=== PATIENT | female | born 1945 | race Caucasian/White ===

== ENCOUNTER → 2016-05-31 | Outpatient (CLI) | payer MEDICARE, MEDICAID ==
[2015-07-20 15:07] VITALS: BP 120/59
[~2016-05-31] MED LIST: AMAN100T PO; ASPI-482 PO; BACL10TA PO; CHOL10003 PO; DOCU-27 PO; ERGO500012 PO; ESTR1TAB5 PO; GADOBUTROL 7.5 MMOL/7.5 ML VIAL IV ONE; HYDR-2762 PO; HYDR-963 PO; HYDR12.53 PO; MECL25TA3 PO; NAPR550T3 PO; OXYB5TAB7 PO
--- NOTE | 2016-05-31 12:50 | KCIC ---
PROCEDURE Lumbar spine MRI with and without contrast. HISTORY Radiculopathy. TECHNIQUE Multiplanar and multi sequence magnetic resonance imaging of the lumbar spine was performed prior to and following the administration of 5 cc Gadavist intravenous contrast. COMPARISON Correlation is made with a report from a prior MRI dated 02/22/2015. The images corresponding with this report are not available for direct comparison at the time of dictation. FINDINGS There is lumbar levoscoliosis centered at L4. There is grade 1 anterolisthesis of L4 on L5, measuring 5 mm. There is grade 1 anterolisthesis of L5 on S1, measuring 3 mm. There is grade 1 anterolisthesis of L2 on L3 and L3 on L4, measuring approximately 1 mm. There is advanced degenerative endplate remodeling with disc space narrowing along the left aspect of L2-L3 and right aspect of L4-L5. This corresponds with levels of maximum scoliotic concavity. There is disc space narrowing and disc desiccation at these levels, as well as L3-L4. The conus terminates at L1. There is no suspicious osseous lesion. There is edema within the right posterior spinal muscles from L3 to the sacral levels, likely due to denervation edema with superimposed fatty atrophy. There is enhancing granulation tissue the laminectomy decompression spaces at L3-L4 and L4-L5 as well as the right lateral recess and along the right posterior lateral disc margin at L4-L5, the latter of which may be due to prior microdiscectomy surgery. At L1-L2, there is no stenosis. At L2-L3, there is a left paracentral to lateral disc protrusion with slight superior posterior central extrusion superimposed on a disc bulge and left lateral predominant endplate osteophytosis. There is mild left facet arthropathy. There is hypertrophy of the ligamentum flavum. There is moderate to severe left foraminal stenosis. There is mild central canal stenosis. At L3-L4, there is a broad-based posterior protrusion with slight superior extrusion superimposed on a diffuse disc bulge and endplate osteophytosis. There is mild left facet arthropathy. There are right juan laminectomy changes. There is mild bilateral foraminal stenosis. At L4-L5, there is a right paracentral to lateral disc protrusion with slight superior extrusion superimposed on a diffuse disc bulge and right lateral predominant endplate osteophytosis. There is mild bilateral facet arthropathy. There are right juan laminectomy changes. There is severe right foraminal stenosis with effacement of the exiting right L4 nerve root. At L5-S1, there is moderate right and mild left facet arthropathy. There is no stenosis. IMPRESSION 1. Multilevel degenerative change within the lumbar spine, described in detail above. This results in moderate to severe left foraminal and mild central canal stenosis at L2-L3, mild bilateral foraminal stenosis at L3-L4, in severe right foraminal stenosis at L4-L5. 2. Right juan laminotomy changes at L3-L4 and L4-L5. There is enhancing granulation tissue within the laminectomy decompression spaces as well as the right lateral recess and along the right posterior lateral disc margin at L4-L5, possibly due to prior microdiscectomy at this level. 3. Grade 1 anterolisthesis of L4 on L5, and to a lesser extent, L2 on L3, L3 on L4 and L5 on S1. There may be a superimposed right pars defect at L4-L5. 4. Edema within the right posterior spinal musculature extending from L3 to the sacral levels, likely due to denervation and superimposed fatty infiltration. 5. Scoliosis. Electronically signed by: Jolene Martinez (May 31, 2016 12:49:42)
--- NOTE | 2016-05-31 12:52 | KCIC ---
PROCEDURE Right hip, two views. HISTORY Pain. FINDINGS Frontal and frog-leg views of the right hip were obtained. There is no fracture, dislocation or subluxation. There is minimal osteoarthritis. IMPRESSION No acute osseous finding. Minimal osteoarthritis of the right hip. Electronically signed by: Jolene Martienz (May 31, 2016 12:50:33)
== END | disposition home or self-care (01) ==
LOC: KCIC MRI 10:45
PROVIDERS: ATTEND Neurological Surgery
DX: M54.16 Radiculopathy, lumbar region (principal); M25.551 Pain in right hip
CPT/HCPCS: 72158; 73502

== ENCOUNTER → 2016-06-07 | Outpatient (CLI) | payer MEDICARE, MEDICAID ==
[2015-07-20 15:07] VITALS: BP 120/59
[~2016-06-07] MED LIST changes: -GADOBUTROL 7.5 MMOL/7.5 ML VIAL IV ONE
--- NOTE | 2016-06-07 13:39 | RAD ---
Lateral lumbar spine, 3 views, 06/07/2016: History: Spondylolisthesis Lateral views of the lumbar spine were obtained standing with flexion and extension, and in the supine neutral position. There is moderate disc space narrowing at L2-3 and L4-5 with moderate endplate sclerosis and marginal spurring. A lesser degree of degenerative changes are present at the other disc levels. There are mild degenerative changes involving the facet joints at multiple levels. There is minimal associated anterolisthesis at L3-4 and L4-5. This does not appear to change significantly with flexion and extension. Extensive aortoiliac calcific plaquing is evident. IMPRESSION: 1. Moderate multilevel degenerative change. 2. Mild spondylolisthesis at L3-4 and L4-5
== END | disposition home or self-care (01) ==
LOC: RAD 12:42
PROVIDERS: ATTEND Neurological Surgery
DX: M43.16 Spondylolisthesis, lumbar region (principal); M47.896 Other spondylosis, lumbar region; I70.8 Atherosclerosis of other arteries
CPT/HCPCS: 72100

== ENCOUNTER → 2016-07-12 | Outpatient (CLI) | payer MEDICARE, MEDICAID ==
[2015-07-20 15:07] VITALS: BP 120/59
[~2016-07-12] MED LIST changes: +IOHEXOL 180 MG/ML 10 ML VIAL. ONE; +methylPREDNISolone ACETATE 40 MG/ML VIAL. ONE; +methylPREDNISolone ACETATE 80 MG/ML VIAL. ONE
--- NOTE | 2016-07-13 16:59 | PAIN ---
DATE OF SERVICE: 07/12/2016 CHIEF COMPLAINT: Low back and right lower extremity pain. HISTORY OF PRESENT ILLNESS: This is a 71-year-old female who presents with history of pain in the low back and right lower extremity since about March of this year for several months, has been increasing in pain. The patient reports she had surgery about a year ago with a lumbar laminectomy and fusion and it never got better after the surgery. The patient reports still significant pain across the low back into the right leg, mostly in the posterior gluteus, posterolateral thigh, anterior thigh, medial thigh, lower leg and the anterior aspect and medial aspect of the lower leg as well, all on the right side. The patient reports numbness and tingling. It is a constant shooting pain. The patient reports it is worse with standing and walking, change in positions, awakens her from sleep at least 2-3 times a night, did not affect her bowel or bladder control, but does affect her ability to walk. She does not usually use an assistive device to walk, but does hold on to items and hand rails when she can. The patient reports she has had physical therapy in the past, has done some exercises which she continues to do currently. No formal physical therapy recently. Most of it was before her surgery in 2015. The patient did have a new flexion/extension films showing no significant motion. An MRI scan of the lumbar spine, which shows previous surgery of right hemilaminotomy changes to L3-4 and L4-5, enhancing granulation tissue with no laminectomy decompression spaces as well as granulation tissue and right lateral recess decompression and posterolateral disk margin at L4-5 with moderate to severe left foraminal and mild central canal stenosis at L2-3, mild bilateral foraminal stenosis at L3-4, severe right foraminal stenosis at L4-5. The patient rates her disability as 10, 10 being the worse with home responsibilities, recreation, occupation; 7 with social activity and life support activities. 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 CURRENT MEDICATIONS: Include hydrocodone, daily baby aspirin, vitamin D, oxybutynin, Premarin, hydrochlorothiazide, baclofen, amantadine and naproxen. ALLERGIES: The patient has no known drug allergies. SOCIAL HISTORY: The patient smokes about 1 pack a day or less, does not drink alcohol. She is single, lives on her own locally and is retired. REVIEW OF SYSTEMS: The patient's review of systems is positive for mentioned history of present illness. All systems reviewed and otherwise negative. It is complete, full and well documented on patient's chart. PHYSICAL EXAMINATION: VITAL SIGNS: The patient's blood pressure is 140/78, pulse 99, respirations 16, temperature 97.4 degrees Fahrenheit, height is 5 feet 4 inches, weight 122 pounds, the patient is awake, alert, oriented and appropriate. Very pleasant demeanor. HEENT: The patient's head is normocephalic, atraumatic. Extraocular movement intact and symmetrical. Oral cavity, mucous membranes moist and pink, dentition is intact. NECK: ____ supple without palpable lymphadenopathy. No swallow reflexes, symmetrical. CHEST: Normal on inspection. LUNGS: Breath sounds are clear to auscultation bilaterally. CARDIOVASCULAR: S1, S2 clear. No murmurs ausculated. ABDOMEN: Soft, nontender, nondistended. No palpable organomegaly. No rebound or guarding demonstrated. BACK: Shows spine grossly in the midline. Normal appearing thoracic kyphosis and mild flattening of lumbar lordotic curvature. Lumbar paraspinous muscle shows symmetry with inspection, shows no atrophy or hypertrophy, symmetrical. With palpation shows some moderate tenderness in the middle and lower distribution, very firm, but normal muscle girth and symmetrical without evidence of atrophy or hypertrophy and without radiation of pain with palpation. No tenderness over the spinous processes. No tenderness over the sacroiliac region. The patient does show some limit in rotation of motion, but not secondary to pain, just limited rotation especially with extension and forward flexion. Right and left lateral rotation about 10 degrees right and left without difficulty and no pain reported in any rotation of motion of lumbar spine. EXTREMITIES: Lower extremities show deep tendon reflexes at 1+ in the patellar, and Achilles tendons are equal. Motor exam is strong with 5/5 dorsiflexion, extension, quadriceps and hamstring flexion and equal. Peripheral pulses are 1+, posterior tibial and dorsalis pedis pulses. No peripheral edema is noted. No clubbing. No cyanosis. Lower extremities are warm and dry with color and appearance. Straight leg raise noted to be positive on the right, about 30 degrees which is decreased with knee flexion. Left side is negative. ____ negative for reproduction of pain in the low back or hip as well. The patient is able to stand, stand on her toes without difficulty, loss of balance, walks with normal appearing gait, do not appear to favor the right or left lower extremities, not using any assistive device to ambulate. IMPRESSION: 1. This is a 71-year-old female with several-month history of increasing pain, status post lumbar decompressive laminectomy and fusion 1 year ago with persistent radicular pain in the low back and right lower extremity. 2. MRI scan of the lumbar spine as noted. 3. Cigarette smoking. 4. Arthritis. PLAN: Options were discussed the patient including surgery, medical management, physical therapy, intervention technique. She would like to proceed with interventional technique. We discussed a caudal approach epidural steroid injection. ____ described the procedure. Risks were then discussed including but not limited to bleeding, infection, possibility of ____ hematoma, subsequent neurological compromise, dural puncture headaches, spinal cord and nerve damage, side effects of steroid medication and poor results regarding pain control. The patient understands and wishes to proceed. The patient will return to clinic in approximately 2 weeks for followup with ____ activity level and side effects to be aware. DIAGNOSES: Lumbar radiculopathy, post-lumbar laminectomy syndrome and lumbar spinal stenosis. PROCEDURE: Caudal approach epidural steroid injection using C-arm fluoroscopic guidance. Under sterile prep and drape using local anesthetic, medication injected with 120 mg Depo-Medrol plus 10 mL preservative free normal saline and 2 mL Isovue for contrast. CONDITION AT DISCHARGE: Stable. The patient tolerated procedure well, had no complications. EDGARDO WEINER MD DR: SADIE/dominick JOB#: [id number] / [id number]
== END | disposition home or self-care (01) ==
LOC: PNCL 10:29
PROVIDERS: ATTEND Anesthesiology
DX: M48.06 Spinal stenosis, lumbar region (principal); M96.1 Postlaminectomy syndrome, not elsewhere classified; M54.16 Radiculopathy, lumbar region; M19.90 Unspecified osteoarthritis, unspecified site; F17.210 Nicotine dependence, cigarettes, uncomplicated; Z90.710 Acquired absence of both cervix and uterus; Z90.49 Acquired absence of other specified parts of digestive tract; Z72.0 Tobacco use
CPT/HCPCS: 62323; J1030; J1040

== ENCOUNTER → 2016-07-26 | Outpatient (CLI) | payer MEDICARE, MEDICAID ==
[2015-07-20 15:07] VITALS: BP 120/59
--- NOTE | 2016-07-26 13:20 | PAIN ---
DATE OF SERVICE: 07/26/2016 PROGRESS NOTE FOR PAIN CLINIC DIAGNOSES: Lumbar radiculopathy with post-lumbar laminectomy syndrome and lumbar spinal stenosis. HISTORY OF PRESENT ILLNESS: The patient is a 71-year-old female, who returns for followup status post caudal approach epidural steroid injection x 1. The patient reports 50% improvement overall in her low back and right leg pain. The patient reports still there is anywhere from 6 to 7 on a scale of 10, but much better than ____ she has been sleeping about 3-4 hours at night, but has been waking her. She has to reposition with that, otherwise increasing activity with fairly good with ease and comfort, still some tingling and numbness in the right leg, posterior lateral thigh, posterior gluteus and anterior thigh, aching, shooting and tingling description, the patient reports no new motor or sensory deficits, no new bowel or bladder incontinence or other complaints. PHYSICAL EXAMINATION: VITAL SIGNS: Today, the patient's blood pressure is 136/72, pulse 81, respirations 18, temperature 98.0 degrees Fahrenheit, weight is 121 pounds. GENERAL: The patient is awake, alert, oriented, appropriate, very pleasant demeanor. HEENT: Head shows normocephalic, atraumatic. Extraocular movements are intact, symmetrical. Oral cavity: Mucous membranes moist and pink. Dentition is intact. NECK: Shows anterior throat supple without palpable lymphadenopathy noted. Swallow reflex is symmetrical. CHEST: Shows normal on inspection. Breath sounds clear to auscultation bilaterally. HEART: Shows S1 and S2 clear. No murmurs auscultated. ABDOMEN: Soft, nontender, nondistended. No palpable organomegaly. No rebound or guarding demonstrated. BACK: Shows spine grossly midline. Some minor flattening of lumbar lordotic curvature. Well-healed surgical scarring is noted in the lumbar distribution of the lumbar paraspinous muscles, appears symmetrical. Palpation shows some [id number] tenderness with palpation only in the lower lumbar distribution of paraspinous muscle, but only diffusely without radiation. No tenderness over the sacrum or sacroiliac regions. EXTREMITIES: Lower extremities show deep tendon reflexes at 1+ in the patellar and tendo calcaneus tendons. Motor exam is strong with 5/5 dorsiflexion, extension and equal bilaterally. Options were discussed with the patient and the patient's old chart was reviewed as her current medication regimen updated. Current review of systems updated today as well. We will proceed with the second caudal approach epidural steroid injection today with fluoroscopic guidance. Risks were again discussed including, but not limited to bleeding, infection, possibility of epidural hematoma, subsequent neurologic compromise, dural puncture, headaches, spinal cord and/or nerve damage, side effects of steroid medication and poor results regarding pain control. The patient understands and wishes to proceed. The patient will return to clinic in approximately 2 weeks for followup, was counseled on return appointment, activity level and side effects to be aware of. DIAGNOSES: Lumbar radiculopathy with post-lumbar laminectomy syndrome and lumbar spinal stenosis. PROCEDURE: Caudal approach epidural steroid injection using C-arm fluoroscopic guidance under sterile prep and drape using local anesthetic. MEDICATION INJECTED: Depo-Medrol 120 mg plus 10 mL of preservative-free normal saline and 2 mL of Isovue for contrast. CONDITION AT DISCHARGE: Stable. The patient tolerated procedure well, had no complications. EDGARDO WEINER MD DR: SADIE/dominick JOB#: [id number] / [id number]
== END | disposition home or self-care (01) ==
LOC: PNCL 10:30
PROVIDERS: ATTEND Anesthesiology
DX: M48.06 Spinal stenosis, lumbar region (principal); M54.16 Radiculopathy, lumbar region; M96.1 Postlaminectomy syndrome, not elsewhere classified; F32.9 Major depressive disorder, single episode, unspecified; Z72.0 Tobacco use; Z90.49 Acquired absence of other specified parts of digestive tract; Z90.710 Acquired absence of both cervix and uterus; Z87.39 Personal history of other diseases of the musculoskeletal system and connective tissue
CPT/HCPCS: 62323; J1030; J1040

== ENCOUNTER → 2018-12-24 | Outpatient (CLI) | payer MEDICARE, MEDICAID ==
[2015-07-20 15:07] VITALS: BP 120/59
[~2018-12-24] MED LIST changes: +DOCU-109 PO; -DOCU-27 PO; -ERGO500012 PO; +ERGO500027 PO; -HYDR-2762 PO; +HYDR-2765 PO; +HYDR-3135 PO; -HYDR-963 PO; -HYDR12.53 PO; +HYDR12.575 PO; -IOHEXOL 180 MG/ML 10 ML VIAL. ONE; +NAPR-677 PO; -NAPR550T3 PO; +OXYB5TAB10 PO; -OXYB5TAB7 PO; -methylPREDNISolone ACETATE 40 MG/ML VIAL. ONE; -methylPREDNISolone ACETATE 80 MG/ML VIAL. ONE
--- NOTE | 2018-12-24 10:39 | KCIC ---
Bilateral digital screening mammograms: Reason for examination: Routine screening. New baseline. Interpretation was made with the benefit of CAD. The skin and nipples show no abnormalities. No abnormal axillary lymph nodes are seen. The breast parenchyma is extremely dense. (Breast density: Category D) There are no dominant masses, suspicious calcifications or architectural distortion. Scattered benign calcifications are present. Impression: No evidence of malignancy. Recommend routine screening. Your patient's mammogram demonstrates that she has dense breast tissue (breast density category C or D), which could hide abnormalities, and if she has other risk factors for breast cancer that have been identified, she might benefit from supplemental screening tests that may be suggested by you as her ordering physician. Dense breast tissue, in and of itself, is a relatively common condition. Therefore, this information is not provided to cause undue concern, but rather to raise your awareness and to promote discussion with your patient regarding the presence of other risk factors, in addition to dense breast tissue. Your patient's mammography results will be sent to her. BI-RADS Category 2: Benign. "Our facility is accredited by the [employer] Mammography Program." This patient's information has been entered into a reminder system for the patient to be notified with the results of her examination and a target date for the next mammogram. Electronically signed by: Demetra Weller MD (12/24/2018 10:36 AM) [id number]
--- NOTE | 2018-12-24 13:10 | KCIC ---
EXAM: Dual energy x-ray absorptiometry (DEXA). HISTORY: Postmenopausal female presents for osteoporosis screening. COMPARISON: None. TECHNIQUE: Dual energy x-ray absorptiometry of the lumbar spine and left hip was performed. Calculation of bone mineral density based on standard deviations above or below the expected young adult normal value (T-score) was completed. FINDINGS: The average bone mineral density in the 1st through 4th lumbar vertebrae is 1.467 g/cmxcm, corresponding with a T-score of 3.8. The average total bone mineral density in the left hip is 1.052 g/cmxcm, corresponding with a T-score of 0.9. IMPRESSION: Normal bone mineral density. Note: Definitions established by the World Health Organization: 1. Normal: T-score is -1.0 or above. 2. Osteopenia: T-score is between -1.0 and -2.5 . 3. Osteoporosis: T-score is -2.5 or below. Electronically signed by: Jolene Martinez MD (12/24/2018 1:07 PM) [place] [id number]
== END ==
LOC: KCIC DEXA 08:44
PROVIDERS: ATTEND Family Medicine
DX: N64.89 Other specified disorders of breast (principal); M81.0 Age-related osteoporosis without current pathological fracture; Z12.31 Encounter for screening mammogram for malignant neoplasm of breast; Z13.820 Encounter for screening for osteoporosis
CPT/HCPCS: 77067; 77080

== ENCOUNTER → 2019-12-16 | Outpatient (CLI) | payer MEDICARE, MEDICAID ==
[2015-07-20 15:07] VITALS: BP 120/59
[~2019-12-16] MED LIST changes: +MECL-75 PO; -MECL25TA3 PO
--- NOTE | 2019-12-16 14:39 | KCIC ---
ANKLE RIGHT 3V, FOOT RIGHT 3V 12/16/2019 12:00 AM INDICATION: Right ankle and foot pain COMPARISON: None available. TECHNIQUE: 3 views of the right ankle and 3 views the right foot are provided. FINDINGS/ IMPRESSION: 1. There is soft tissue swelling about the ankle, involving the lateral aspect. Tibial plafond and talar dome are intact. Ankle mortise is congruent. 2. There is cortical irregularity involving the anterior calcaneus. There is a lateral ossific fragment measuring 1.1 cm with donor site possibly from the calcaneus or base of the cuboid. Further evaluation with cross-sectional imaging can be of benefit. Electronically signed by: Lou Jackson MD (12/16/2019 2:36 PM) [id number]
== END | disposition home or self-care (01) ==
LOC: KCIC 13:50
PROVIDERS: ATTEND Family Medicine
DX: M25.471 Effusion, right ankle (principal); M77.31 Calcaneal spur, right foot
CPT/HCPCS: 73610; 73630

== ENCOUNTER → 2020-11-11 | Outpatient (CLI) | payer MEDICARE, MEDICAID ==
[2015-07-20 15:07] VITALS: BP 120/59
--- NOTE | 2020-11-11 13:02 | RAD ---
INDICATION: Reason: B/L LOWER EXTREMITY EDEMA / Spl. Instructions: / History: COMPARISON: None. TECHNIQUE: Grayscale, color and doppler ultrasound images were obtained of the bilateral lower extrem ity venous vasculature. RIGHT: No thrombus identified in the common femoral vein, femoral vein, popliteal vein or visualized calf ve ins. LEFT: No thrombus identified in the common femoral vein, femoral vein, popliteal vein or visualized calf ve ins. IMPRESSION: * No thrombus identified in deep venous system of bilateral lower extremities. Electronically signed by: Daniel Nunez MD (11/11/2020 1:00 PM) [id number]
--- NOTE | 2020-11-11 16:02 | RAD ---
MR#: [id number] Date of Study: 11/11/2020 Ordering Physician: REMIGIO HAQ, Referring Physician: REMIGIO HAQ, Tech: Bridger Pool MBA, RDMS, RVT, RDCS, RTR APPROVED REPORT Patient Location: OUT-PATIENT Indications Claudication:Bilaterally VELOCITY AND DOPPLER WAVEFORM ANALYSIS RIGHT cm/secWaveformSeverity LEFT cm/secWaveform Severity dCFA 268.0MonophasicdCFA 117.0Monophasic Prof Fem Art. 189.0MonophasicProf Fem Art. 69.0Biphasic Fem Art Prox. 264.0MonophasicFem Art Prox. 119.0Monophasic Fem Art Mid. 178.0MonophasicFem Art Mid. 444.0Monophasic Fem Art Dist. 280.0MonophasicFem Art Dist. 201.0Monophasic Pop Art(Fossa) 135.0MonophasicPop Art(AK) 175.0Monophasic ANTIQUE JEWELRY REPAIRER Prox. 93.0MonophasicPTA Prox. 77.0Monophasic ANTIQUE JEWELRY REPAIRER Dist. 61.0MonophasicPTA Dist. 64.0Monophasic Per Art Mid. 55.0MonophasicPer Art Mid. 68.0Monophasic KIM Prox. 133.0MonophasicATA Prox. 66.0Monophasic DPA 83MonophasicDPA 95Monophasic Findings Grayscale images the bilateral lower extremity arterial vessels demonstrates moderate diffuse atheros clerotic plaque. On the right side there is likely a moderate 50% stenosis involving the distal common femoral artery. There is likely moderate diffuse 50% stenosis involving the SFA. There is three-vessel runoff belo w the knee again with likely moderate diffuse disease. Waveforms are mostly monophasic throughout th e lower extremity arterial course consistent with adventitial calcification. On the left side there is a likely greater than 75% stenosis involving the mid SFA. Below the knee t here is three-vessel runoff with mostly monophasic waveforms. Critical Notification Critical Value: No <Conclusion> 1. Moderate diffuse disease on the right side of approximately 50% 2. Probable greater than 75% stenosis involving the left mid SFA. Signed by : Jeremy Velez, Electronically Approved : 11/11/2020 16:02:01
--- NOTE | 2020-11-11 16:19 | RAD ---
MR#: [id number] Date of Study: 11/11/2020 Ordering Physician: REMIGIO HAQ, Referring Physician: REMIGIO HAQ, Tech: Bridger Pool MBA, RDMS, RVT, RDCS, RTR APPROVED REPORT Patient Location : OUT-PATIENT Indications Lower Extremity Edema : Bilateral Findings Limited grayscale images of the bilateral saphenofemoral junctions are grossly unremarkable. The right great saphenous vein measures 4.7 mm, the left great saphenous vein measures 6.3 mm. Bilat eral greater saphenous veins did not reveal any evidence of reflux. Bilateral lesser saphenous veins did not reveal any evidence of reflux. Critical Notification Critical Value: No <Conclusion> 1. Negative for reflux in the bilateral greater and lesser saphenous veins. Signed by : Jeremy Velez, Electronically Approved : 11/11/2020 16:18:52
--- NOTE | 2020-11-11 17:13 | CARD ---
MR#: [id number] Date of Study: 11/11/2020 Ordering Physician: REMIGIO MARTELL, Referring Physician: REMIGIO MARTELL, Jose: Ravin Washburn [facility] APPROVED REPORT EXAM: Two-dimensional and M-mode echocardiogram with Doppler and color Doppler. Other Information Quality : AverageGoodHR: 73bpm Rhythm : NSR INDICATION Lower exremity edema RISK FACTORS Smoking 2D DIMENSIONS Left Atrium(2D)3.3 (1.6-4.0cm)IVSd1.0 (0.7-1.1cm) Aortic Root(2D)3.1 (2.0-3.7cm)LVDd3.9 (3.9-5.9cm) LVOT Diameter2.2 (1.8-2.4cm)PWd1.0 (0.7-1.1cm) LVDs2.1 (2.5-4.0cm)FS (%) 47.2 % SV52.1 ml Aortic Valve AoV Peak Luis.94.7cm/sAoV VTI25.7cm AO Peak GR.3.6mmHgLVOT Peak Luis.75.9cm/s AO Mean GR.2mmHgAVA (VMAX)2.98cm2 Mitral Valve MV E Wrnklzqq74.2cm/sMV E Peak Gr.6mmHg MV DECEL [id number] A Rohkkoib419.5cm/s MV E Mean Gr.3mmHgE/A Ratio0.9 MV A Scycjstf645zs Pulmonary Valve PV Peak Bgcxgcth11.4cm/s Tricuspid Valve TR P. Jnqhoxql483xa/sTR Peak Gr.34mmHg Pulmonary Vein S1 Hakoxwvw05.0cm/sD2 Draeskml76.1cm/s PVa lvyhdrly725kgpd LEFT VENTRICLE The left ventricle is normal size. There is normal left ventricular wall thickness. The left ventricu lar systolic function is normal and the ejection fraction is within normal range. Left ventricular ej ection fraction is 55 to 60%. There is normal LV segmental wall motion. Tissue Doppler imaging reveal s abnormal left ventricular diastolic dysfunction. No left ventricle thrombus noted on this study. Th ere is no ventricular septal defect visualized. There is no left ventricular aneurysm. There is no ma ss noted in the left ventricle. RIGHT VENTRICLE The right ventricle is normal size. There is normal right ventricular wall thickness. The right ventr icular systolic function is normal. ATRIA The left atrium is mildly dilated. The right atrium is borderline dilated. The interatrial septum is intact with no evidence for an atrial septal defect or patent foramen ovale as noted on 2-D or Dopple r imaging. AORTIC VALVE The aortic valve is normal in structure and function. Doppler and Color Flow revealed no significant aortic regurgitation. There is no significant aortic valvular stenosis. There is no aortic valvular v egetation. MITRAL VALVE The mitral valve is mildly thickened. There is no evidence of mitral valve prolapse. There is no mitr al valve stenosis. Doppler and Color-flow revealed trace to mild mitral regurgitation. TRICUSPID VALVE The tricuspid valve is normal in structure and function. Doppler and Color Flow revealed mild tricusp id regurgitation. The pulmonary artery systolic pressure is estimated at 38 mmHg. There is no tricusp id valve prolapse or vegetation. There is no tricuspid valve stenosis. PULMONIC VALVE The pulmonary valve is normal in structure and function. Mild pulmonic regurgitation There is no pulm onic valvular stenosis. GREAT VESSELS The aortic root is normal in size. The ascending aorta is normal in size. The pulmonary artery is nor mal. The IVC is normal in size and collapses >50% with inspiration. PERICARDIAL EFFUSION There is no pleural effusion. There is no evidence of significant pericardial effusion. Critical Notification Critical Value: No <Conclusion> The left ventricle is normal size. The left ventricular systolic function is normal and the ejection fraction is within normal range. Left ventricular ejection fraction is 55 to 60%. There is normal left ventricular wall thickness. Doppler and Color Flow revealed no significant aortic regurgitation. There is no significant aortic valvular stenosis. Doppler and Color-flow revealed trace to mild mitral regurgitation. Doppler and Color Flow revealed mild tricuspid regurgitation. The pulmonary artery systolic pressure is estimated at 38 mmHg. Signed by : Remigio Martell MD Electronically Approved : 11/11/2020 17:13:01
== END ==
LOC: ECHO 14:01
PROVIDERS: ATTEND Internal Medicine Cardiovascular Disease
DX: I08.8 Other rheumatic multiple valve diseases (principal); R06.02 Shortness of breath; I73.9 Peripheral vascular disease, unspecified; I10 Essential (primary) hypertension; I08.3 Combined rheumatic disorders of mitral, aortic and tricuspid valves
CPT/HCPCS: 93306; 93925; 93970

== ENCOUNTER → 2020-12-02 | Outpatient (CLI) | payer MEDICARE, MEDICAID ==
[2015-07-20 15:07] VITALS: BP 120/59
--- NOTE | 2020-12-02 13:55 | KCIC ---
EXAMINATION: Magnetic resonance imaging (MRI) of the lumbar spine without contrast 12/02/2020 10:20 AM HISTORY: Right-sided lumbar radiculopathy. New onset right hip and leg pain in recent months. Known s coliosis. TECHNIQUE: Multiplanar multi-weighted MRI of the lumbar spine was performed without intravenous contr ast using the standard lumbar spine protocol. Contrast information: None administered. COMPARISON: MRI lumbar spine 05/31/2016. FINDINGS: There is 5 mm anterolisthesis of L4 on L5. There is S-shaped scoliosis of the thoracolumbar spine wit h apex dextrocurvature at L1-L2 and apex levoconvex curvature at L4-L5. Conus medullaris remains at L 1. Distal spinal cord signal intensity is normal on all sequences. Moderate disc height loss identifi ed at L2-3, L3-L4 and L4-L5. There is disc desiccation at all levels of lumbar spine. Endplate erosiv e changes identified at L4-L5 compatible with endplate degenerative changes. Abdominal aorta is vanessa l in caliber. No suspicious retroperitoneal abnormality is identified. Visualized portions of the sac rum are intact. There is normal prominence of the central to intimal canal along the conus medullaris . Abdominal aorta is normal in caliber. T10-T11: There is a left central disc extrusion. Mild facet arthropathy. Severe left neural foraminal stenosis. Mild spinal canal stenosis without deformity or cord or cord signal abnormality. T11-T12: Disc is normal in configuration. Moderate left facet arthropathy. No neuroforaminal or spina l canal stenosis. T12-L1: Disc is normal in configuration. Mild facet arthropathy. No neuroforaminal or spinal canal st enosis. L1-L2: The disc is normal in configuration. There is lvlx-on-bcktbdbt facet arthropathy. There is no neuroforaminal stenosis. There is no spinal canal stenosis. L2-L3: There is a disc bulge asymmetric to the left. Moderate facet arthropathy ligamentum flavum inf olding. Severe left and moderate right neural foraminal stenosis. Moderate spinal canal stenosis. The re is narrowing of the left lateral recess. Findings are stable from prior examination. L3-L4: There is a moderate circumferential disc bulge with right foraminal disc protrusion. Moderate left and severe right neuroforaminal stenosis. There is severe right and moderate left facet arthropa thy. Severe right and moderate left neural foraminal stenosis. Mild spinal canal stenosis. Right juan laminectomy changes are present. Findings are stable. L4-L5: There is a circumferential disc bulge. Right hemilaminectomy changes are present. Severe facet arthropathy. Severe right and moderate left neuroforaminal stenosis. Moderate spinal canal stenosis. There is narrowing the left lateral recess. Left-sided ligamentum flavum infolding noted. Findings a re stable. L5-S1: Mild disc bulge. Moderate severe facet arthropathy. No significant neuroforaminal or spinal ca nal stenosis. IMPRESSION: Moderate lumbar spondylosis as described in detail above. Findings appear similar compared to prior e xamination from 06/12/2016. Electronically signed by: Lou Jackson MD (12/02/2020 1:53 PM) [id number]
== END ==
LOC: KCIC MRI 10:09
PROVIDERS: ATTEND Family Medicine
DX: M47.26 Other spondylosis with radiculopathy, lumbar region (principal); M51.27 Other intervertebral disc displacement, lumbosacral region; M48.8X7 Other specified spondylopathies, lumbosacral region; M41.85 Other forms of scoliosis, thoracolumbar region; M43.8X6 Other specified deforming dorsopathies, lumbar region; M48.061 Spinal stenosis, lumbar region without neurogenic claudication
CPT/HCPCS: 72148

== ENCOUNTER 2021-08-06 16:09 | Emergency (ER) | payer MEDICARE, MEDICAID ==
[~2021-08-06] VITALS: Ht 162.6 cm; Wt 61.6 kg
[2021-08-06] MEDS ORDERED: IV NORMAL SALINE 1000ML BAG 1,000 ML IV ONE (16:30)
[2021-08-06 16:47] LABS: BASO # 0.1 x10^3/uL (0.0-0.2); BASO % 1 % (0-3); EOS # 0.1 x10^3/uL (0.0-0.7); EOS % 2 % (0-3); HEMATOCRIT 34.9 % (36.0-47.0); HEMOGLOBIN 11.6 g/dL (12.0-15.5); LYMPH # 1.3 x10^3/uL (1.0-4.8); LYMPH % 22 % (24-48); MEAN CORPUSCULAR HEMOGLOBIN 27 pg (25-35); MEAN CORPUSCULAR HGB CONC 33 g/dL (31-37); MEAN CORPUSCULAR VOLUME 80 fL (79-100); MONO # 0.6 x10^3/uL (0.0-1.1); MONO % 10 % (0-9); NEUT % 66 % (31-73); PLATELET COUNT 326 x10^3/uL (140-400); RED BLOOD COUNT 4.36 x10^6/uL (3.50-5.40); WHITE BLOOD COUNT 6.1 x10^3/uL (4.0-11.0)
--- NOTE | 2021-08-06 16:58 | EKG ---
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
[2021-08-06 17:19] LABS: CALCIUM 8.7 mg/dL (8.5-10.1); GFR 53.9; POTASSIUM 3.4 mmol/L (3.5-5.1)
[2021-08-06 17:30] LABS: ALBUMIN 2.9 g/dL (3.4-5.0); ALBUMIN/GLOBULIN RATIO 0.8 (1.0-1.7); TOTAL BILIRUBIN 0.4 mg/dL (0.2-1.0); TOTAL PROTEIN 6.6 g/dL (6.4-8.2)
--- NOTE | 2021-08-06 17:39 | RAD ---
Chest AP portable at 1630: Reason for examination: Decreased level of consciousness. The heart size is normal. Mediastinum is unremarkable. Lung lagunas show some linear density at the satish ng bases which probably reflects some atelectasis. No acute bony abnormalities are seen. Impression: Linear density at the lung bases probably reflecting some atelectasis. Electronically signed by: Demetra Weller MD (08/06/2021 5:36 PM) [facility] [place]
[2021-08-06 17:53] LABS: BARBITURATES NEG (NEG); BENZODIAZEPINES NEG (NEG); CANNABINOIDS NEG (NEG); COCAINE NEG (NEG); METHADONE NEG (NEG); OPIATES POS (NEG); PHENCYCLIDINE NEG (NEG)
[2021-08-06 17:54] LABS: AMPHETAMINE/METHAMPHETAMINE NEG (NEG)
[2021-08-06 18:02] LABS: BACTERIA,URINE MANY /HPF (0-FEW); RBC,URINE 0 /HPF (0-2)
--- NOTE | 2021-08-06 18:35 | RAD ---
CT HEAD INDICATION: Decreased loss of consciousness: COMPARISON: None Available. Exposure: One or more of the following individualized dose reduction techniques were utilized for thi s examination: 1. Automated exposure control 2. Adjustment of the mA and/or kV according to patient size 3. Use of iterative reconstruction technique TECHNIQUE: 5 mm contiguous axial images were obtained from the skull base to the vertex in both bone and soft tissue algorithm. FINDINGS: Mild bilateral periventricular white matter hypodensities likely chronic small vessel ischemic diseas e. No evidence of acute intracranial hemorrhage. No extra-axial fluid collections. No mass effect or midline shift. Prominent mild dilated appearing bilateral lateral ventricles Basal cisterns are patent. No fractures identified.Villa-white differentiation is preserved.Globes and orbits are within normal l imits. Moderate mucosal thickening left maxillary sinus. IMPRESSION: Prominent mild dilated appearing bilateral lateral ventricles, nonspecific. Correlate for normal pres sure hydrocephalus. Otherwise, no acute intracranial findings. Electronically signed by: Woody Fajardo MD (08/06/2021 6:32 PM) [id number]
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
[2021-08-06 18:47] VITALS: BP 126/58
[2021-08-06] MEDS ORDERED: CEPH500T PO (18:52)
[2021-08-06] MEDS ORDERED: cefTRIAXone IV Push 1 GM VIAL. IVP ONE (19:30)
== END 2021-08-06 19:05 | disposition left against medical advice (07) ==
LOC: ER 16:09
DX: R41.82 Altered mental status, unspecified (principal); N30.00 Acute cystitis without hematuria; R09.02 Hypoxemia; F17.200 Nicotine dependence, unspecified, uncomplicated; Z90.710 Acquired absence of both cervix and uterus; Z90.49 Acquired absence of other specified parts of digestive tract
CPT/HCPCS: 36415; 70450; 71045; 80053; 80307; 81001; 82550; 83605; 83880; 84484; 85025; 87040; 87077; 87086; 87186; 93005; 96361; 96374; 99285; G0480; J0696; J7030